=== PATIENT | female | born 1970 | race Caucasian/White ===

== ENCOUNTER 2019-01-08 22:08 | Emergency (ER) | payer BC, OTHER ==
[~2019-01-08] VITALS: Ht 157.5 cm; Wt 78.0 kg
[2019-01-08] MEDS ORDERED: LIDOCAINE 1% INJ 20 ML 20 ML VIAL ONE (22:15)
[2019-01-08] MEDS ORDERED: AMOX-358 PO (22:45)
[2019-01-08] MEDS ORDERED: AUGMENTIN 875 MG TAB (AMOXICILLIN/CLAVULANATE) PO SCH (22:45)
[2019-01-08] MEDS ORDERED: TETANUS,DIPTH,PERTUSS P/F (BOOSTRIX) 0.5 ML VIAL IM ONE (22:45)
--- NOTE | 2019-01-08 22:46 | ED Integumentary General ---
General Chief Complaint: Bite-Animal/Human/Insect Stated Complaint: DOG BITE,BLEEDING Nursing Triage Note: PATIENT VERBALIZED FIGHTING WITH OWN DOG AND "LOST" NOTICABLE LACERATION/TEETH SILVESTRE/WOUNDS BLEEDING IN SOME AREAS. OPEN EDGES NOT CONNECTED. Source: patient Exam Limitations: no limitations History of Present Illness Date Seen by Provider: Jan 08, 2019 Time Seen by Provider: 22:40 Initial Comments Bite to the right forearm by her own dog just prior to arrival at home. Her tetanus is not up-to-date, the dog's vaccinations are up-to-date. Timing/Duration: just prior to arrival Severity: moderate Location: extremities Associated Symptoms: denies symptoms Allergies and Home Medications Allergies Coded Allergies: adhesive (Verified Allergy, Unknown, 01/08/19) Home Medications Amoxicillin/Potassium Clav 1 Each Tablet, 1 EACH PO BID Prescribed by: NAS PARIKH on 01/08/19 5153 Patient Home Medication List Home Medication List Reviewed: Yes Review of Systems Review of Systems Constitutional: see HPI EENTM: see HPI Respiratory: no symptoms reported Cardiovascular: no symptoms reported Genitourinary: no symptoms reported Musculoskeletal: no symptoms reported Skin: see HPI Psychiatric/Neurological: No Symptoms Reported Endocrine: No Symptoms Reported Past Bbxpbra-Xawodd-Xyrstr Hx Patient Social History Recent Foreign Travel: No Contact w/Someone Who Travel: No Recent Infectious Disease Expo: No Physical Exam Vital Signs Vital Signs - First Documented 01/08/19 22:15 Temp 98.0 Pulse 67 Resp 18 B/P (MAP) 140/86 (104) Pulse Ox 98 O2 Delivery Room Air Capillary Refill : Less Than 3 Seconds General Appearance: WD/WN, no apparent distress HEENT: PERRL/EOMI, normal ENT inspection Respiratory: no respiratory distress, no accessory muscle use Neurologic/Psychiatric: alert, normal mood/affect, oriented x 3 Skin: normal color, warm/dry Skin Problem Location: upper extremities Skin Problem Character: other (lacerations to the dorsal and volar aspect of the right forearm. There is also several small puncture wounds to the dorsal right forearm. There is a one centimeters laceration that is gaping by about half a centimeters to this requires closure with one suture. There are 2 lacerations to the volar side of the forearm that are gaping by about 1-1.5 cm. These require closure with a total of 5 sutures loosely to close it since it was gaping by so much. He wound was then covered with Xeroform, gauze pads and gauze roll) Procedures/Interventions Wound Location: Upper Extremities Wound Length (cm): 4 Wound's Depth, Shape: linear, irregular Wound Explored: clean Irrigated w/ Saline (ccs): 400 Anesthesia: 1% Lidocaine Volume Anesthetic (ccs): 9 Suture: Ethlion Suture Size: 4-0 Number of Sutures: 6 Layer Closure?: 1 Number Deep Layer Sutures: 0 Progress Very anesthetized with a total of 9 mL of 1% lidocaine without epinephrine. The dorsal laceration is 1 m. It was irrigated with 150 mL chlorhexidine saline solution. Closed with 1 loose simple suture. THe 2 lacerations to the volar forearm 1.5 cm in length. These were irrigated with a total of 300 mL of chlorhexidine/saline solution. Closed loosely with a total of 5 simple interrupted sutures. Progress/Results/Core Measures Results/Orders My Orders Orders - NAS PARIKH APRN Dipht,Pertuss(Acell),Tet Adult (Boostrix (01/08/19 22:45) Amoxicillin/Clavulanate Tablet (Augmenti (01/08/19 22:45) Medications Given in ED Current Medications Medications Dose Ordered Sig/Radha Route Start Time Stop Time Status Last Admin Dose Admin Lidocaine HCl 20 ml STK-MED ONCE .ROUTE 01/08/19 22:15 01/08/19 22:17 DC 01/08/19 22:20 20 ML Vital Signs/I&O 01/08/19 22:15 Temp 98.0 Pulse 67 Resp 18 B/P (MAP) 140/86 (104) Pulse Ox 98 O2 Delivery Room Air Blood Pressure Mean: 104 Departure Communication (Admissions) The puncture wounds were left open, only the large gaping wounds were sutured. on the images/diagram of arm, the Left arm is actually depicting right arm lacerations since a right arm diagram is not available. Impression Primary Impression: Dog bite Qualified Codes: W54.0XXA - Bitten by dog, initial encounter Disposition: HOME, SELF-CARE Condition: Stable Departure-Patient Inst. Decision time for Depature: 22:44 Referrals: NO,LOCAL PHYSICIAN (PCP/Family) Primary Care Physician Patient Instructions: Animal Bites (DC) Add. Discharge Instructions: 1. The big risk at this point is for infection. Look out for fevers swelling increasing redness. Take the antibiotics as directed. Change the dressing daily for about 5 days and then as needed to collect any drainage. Expect these wounds to drain quite a bit over the next few days. Stitches out in 10 days here in the emergency room at no charge Scripts Amoxicillin/Potassium Clav (Augmentin 875-125 Tablet) 1 Each Tablet 1 EACH PO BID, #14 TAB Prov: NAS PARIKH APRN 01/08/19 Images Extremities-Upper 1 - Laceration 2 - Laceration 1 - NAS PARIKH APRN Jan 08, 2019 22:45
[2019-01-08 22:50] VITALS: BP 140/86
== END 2019-01-08 22:50 | disposition home or self-care (01) ==
LOC: EDUNIT# 22:08 → ER 22:09
DX: S51.831A Puncture wound without foreign body of right forearm, initial encounter (principal); Z91.048 Other nonmedicinal substance allergy status; Z23 Encounter for immunization; W54.0XXA Bitten by dog, initial encounter; Y92.009 Unspecified place in unspecified non-institutional (private) residence as the place of occurrence of the external cause
CPT/HCPCS: 12002; 90715